=== PATIENT | female | born 1955 | race Caucasian/White ===

== ENCOUNTER 2018-11-01 18:19 | Inpatient (IN) | payer MEDICAID, OTHER ==
[~2018-11-01] VITALS: Ht 165.1 cm; Wt 68.3 kg
[2018-11-01] MEDS ORDERED: LOSA25TA41 PO (18:43)
[2018-11-01] MEDS ORDERED: OMEP10 PO (18:43)
[2018-11-01 18:57] LABS: APPEARANCE,URINE CLOUDY (CLEAR); BILIRUBIN,URINE NEGATIVE (NEGATIVE); GLUCOSE, URINE (UA) NEGATIVE (NEGATIVE); KETONES,URINE NEGATIVE (NEGATIVE); LEUKOCYTE ESTERASE ,URINE SMALL (NEGATIVE); NITRATE,URINE NEGATIVE (NEGATIVE); OCCULT BLOOD,URINE SMALL (NEGATIVE); PH,URINE 6.5 (5.0-8.0); PROTEIN,URINE SEE CONFIRM (NEGATIVE)
[2018-11-01] MEDS ORDERED: ONDANSETRON HCL 4 MG/2 ML VIAL IVP ONE (19:00)
[2018-11-01] MEDS ORDERED: MORPHINE SULFATE 4 MG/ML SYRINGE IVP ONE (19:00)
[2018-11-01] MEDS ORDERED: SODIUM CHLORIDE 0.9% 1,000 ML IV ONE ×2 (19:00→20:15)
[2018-11-01 19:03] LABS: BACTERIA,URINE Many /HPF (None Seen); SQUAMOUS EPITHELIAL CELL,UR Many /LPF (None Seen); SULFOSALICYLIC ACID,URINE 4+ (Negative); WBC,URINE 26-50 /HPF (0-5)
[2018-11-01 19:14] LABS: BASOPHILS % (AUTO) 0.2 % (0.0-2.0); EOSINOPHILS % (AUTO) 0.2 % (1.0-6.0); HEMATOCRIT 43.4 % (36-46); HEMOGLOBIN 14.6 g/dL (12.0-16.0); LYMPHOCYTES # (AUTO) 2.9 K/uL (1.0-4.8); LYMPHOCYTES % (AUTO) 14.6 % (22.0-44.0); MEAN CORPUSCULAR HEMOGLOBIN 30.2 pg (26.0-34.0); MEAN CORPUSCULAR HGB CONC 33.6 G/dL (31.0-37.0); MEAN CORPUSCULAR VOLUME 90 fL (80-100); MONOCYTES # (AUTO) 1.2 K/uL (0.1-1.0); MONOCYTES % (AUTO) 6.1 % (2.0-9.0); NEUTROPHILS # (AUTO) 15.4 K/uL (1.8-7.7); NEUTROPHILS % (AUTO) 78.9 % (40.0-70.0); PLATELET COUNT (AUTO) 286 K/uL (150-450); RED BLOOD CELL COUNT(AUTO) 4.85 MIL/uL (4.00-5.20); RED CELL DISTRIBUTION WIDTH 13.1 % (11.5-14.5)
[2018-11-01 19:23] LABS: CALCIUM, TOTAL 9.2 mg/dL (8.8-10.5); CREATININE 1.29 mg/dL (0.60-1.30); POTASSIUM 3.3 mmol/L (3.5-5.1)
[2018-11-01 19:30] LABS: ALBUMIN 3.9 g/dL (3.4-5.0); BILIRUBIN,TOTAL 0.6 mg/dL (0.1-1.0); TOTAL PROTEIN, SERUM 7.9 g/dL (6.4-8.2)
[2018-11-01] MEDS ORDERED: KETOROLAC TROMETHAMINE 30 MG/ML VIAL IVP ONE (20:15)
[2018-11-01] MEDS ORDERED: CefTRIAXone 1 GM/DEXTROSE 50 ML IV ONE (20:15)
[2018-11-01] MEDS ORDERED: GADOBUTROL 1 MMOL/ML 10 ML VIAL IVP ONE (21:54)
[2018-11-02] MEDS ORDERED: MORPHINE SULFATE 4 MG/ML SYRINGE IVP ONE (02:15)
[2018-11-02] MEDS ORDERED: SODIUM CHLORIDE 0.9% 1,000 ML IV ONE (03:00)
[2018-11-02 03:23] VITALS: BP 153/89
[2018-11-02 07:29] VITALS: BP 151/69
[2018-11-02] MEDS ORDERED: 0.9% SODIUM CHLORIDE 10 ML SYRINGE IVP PRN (07:30)
[2018-11-02] MEDS ORDERED: DEXTROSE 5%-0.45% SODIUM CHL 500 ML IV SCH (07:30)
[2018-11-02] MEDS ORDERED: MORPHINE SULFATE 2 MG/ML SYRINGE IVP PRN (07:30)
[2018-11-02] MEDS ORDERED: POTASSIUM CHL 10 MEQ/WATER 50 ML IV PRN (07:45)
[2018-11-02] MEDS: ONDANSETRON HCL 4 MG/2 ML VIAL IVP PRN (08:46)
[2018-11-02] MEDS: OxyCODONE HCL/ACETAMINOPHEN 5-325 MG TABLET PO PRN ×3 (08:46→23:39)
[2018-11-02] MEDS: POTASSIUM CHLORIDE 20 MEQ ER TABLET PO PRN (08:46)
[2018-11-02] MEDS: PIPERACILLIN/TAZO 3.375 GM/D5W 50 ML IV SCH ×3 (08:47→20:09)
[2018-11-02] MEDS: DEXTROSE 5%-0.45% SODIUM CHL 1,000 ML IV SCH ×3 (08:47→23:15)
[2018-11-02] MEDS: LOSARTAN POTASSIUM 25 MG TABLET PO SCH (08:47)
[2018-11-02] MEDS: DOCUSATE SODIUM 100 MG CAPSULE PO SCH ×2 (08:53→20:09)
[2018-11-02] MEDS ORDERED: PANTOPRAZOLE SODIUM 40 MG/VIAL IVP SCH (09:00)
[2018-11-02] MEDS ORDERED: METOCLOPRAMIDE HCL 5 MG/ML 2 ML VIAL IVP PRN (09:30)
[2018-11-02] MEDS: SIMETHICONE 80 MG CHEWABLE TABLET CHEW PRN ×3 (10:57→23:11)
[2018-11-02] MEDS: FAMOTIDINE 20 MG TABLET PO SCH ×2 (10:57→20:14)
[2018-11-02 11:48] VITALS: BP 148/80
[2018-11-02 16:00] VITALS: BP 145/85
[2018-11-02 19:41] VITALS: BP 156/81
[2018-11-03] VITALS (8 sets, daily range): BP systolic 127–164; BP diastolic 59–98
[2018-11-03] MEDS: PIPERACILLIN/TAZO 3.375 GM/D5W 50 ML IV SCH ×4 (02:37→20:58)
[2018-11-03] MEDS: SIMETHICONE 80 MG CHEWABLE TABLET CHEW PRN ×2 (05:37→15:30)
[2018-11-03 06:02] LABS: BASOPHILS % (AUTO) 0.1 % (0.0-2.0); EOSINOPHILS % (AUTO) 0 % (1.0-6.0); HEMATOCRIT 38.7 % (36-46); HEMOGLOBIN 12.7 g/dL (12.0-16.0); LYMPHOCYTES # (AUTO) 1.4 K/uL (1.0-4.8); LYMPHOCYTES % (AUTO) 7.6 % (22.0-44.0); MEAN CORPUSCULAR HEMOGLOBIN 30.2 pg (26.0-34.0); MEAN CORPUSCULAR HGB CONC 32.9 G/dL (31.0-37.0); MEAN CORPUSCULAR VOLUME 92 fL (80-100); MONOCYTES # (AUTO) 1.7 K/uL (0.1-1.0); MONOCYTES % (AUTO) 9.5 % (2.0-9.0); NEUTROPHILS # (AUTO) 15.3 K/uL (1.8-7.7); NEUTROPHILS % (AUTO) 82.8 % (40.0-70.0); PLATELET COUNT (AUTO) 169 K/uL (150-450); RED BLOOD CELL COUNT(AUTO) 4.21 MIL/uL (4.00-5.20); RED CELL DISTRIBUTION WIDTH 13.4 % (11.5-14.5)
[2018-11-03 06:33] LABS: ALBUMIN 2.7 g/dL (3.4-5.0); CALCIUM, TOTAL 8.4 mg/dL (8.8-10.5); CREATININE 1.04 mg/dL (0.60-1.30); POTASSIUM 4.1 mmol/L (3.5-5.1); TOTAL PROTEIN, SERUM 6.1 g/dL (6.4-8.2)
[2018-11-03] MEDS: LOSARTAN POTASSIUM 25 MG TABLET PO SCH (07:56)
[2018-11-03] MEDS: FAMOTIDINE 20 MG TABLET PO SCH ×2 (07:56→20:57)
[2018-11-03] MEDS: ONDANSETRON HCL 4 MG/2 ML VIAL IVP PRN ×2 (07:56→17:38)
[2018-11-03] MEDS: DOCUSATE SODIUM 100 MG CAPSULE PO SCH ×2 (07:56→21:00)
[2018-11-03] MEDS: OxyCODONE HCL/ACETAMINOPHEN 5-325 MG TABLET PO PRN ×2 (08:53→17:38)
[2018-11-03] MEDS: DEXTROSE 5%-0.45% SODIUM CHL 1,000 ML IV SCH (12:53)
[2018-11-03] MEDS: ACETAMINOPHEN 325 MG TABLET PO PRN (20:59)
[2018-11-04] MEDS: PIPERACILLIN/TAZO 3.375 GM/D5W 50 ML IV SCH ×4 (02:38→19:55)
[2018-11-04] MEDS: SIMETHICONE 80 MG CHEWABLE TABLET CHEW PRN ×3 (02:38→23:29)
[2018-11-04 04:17] VITALS: BP 164/85
[2018-11-04] MEDS: OxyCODONE HCL/ACETAMINOPHEN 5-325 MG TABLET PO PRN ×3 (04:36→17:23)
[2018-11-04 06:21] LABS: ALBUMIN 2.5 g/dL (3.4-5.0); CALCIUM, TOTAL 8.8 mg/dL (8.8-10.5); CREATININE 0.95 mg/dL (0.60-1.30); POTASSIUM 3.4 mmol/L (3.5-5.1); TOTAL PROTEIN, SERUM 6.3 g/dL (6.4-8.2)
[2018-11-04 07:20] VITALS: BP 138/78
[2018-11-04] MEDS: FAMOTIDINE 20 MG TABLET PO SCH ×2 (08:26→19:53)
[2018-11-04] MEDS: POTASSIUM CHLORIDE 20 MEQ ER TABLET PO PRN (08:26)
[2018-11-04] MEDS: DOCUSATE SODIUM 100 MG CAPSULE PO SCH ×2 (08:27→20:58)
[2018-11-04] MEDS: LOSARTAN POTASSIUM 25 MG TABLET PO SCH (08:27)
[2018-11-04] MEDS: DEXTROSE 5%-0.45% SODIUM CHL 1,000 ML IV SCH (11:02)
[2018-11-04 11:12] VITALS: BP 166/82
[2018-11-04 15:15] VITALS: BP 143/84
[2018-11-04] MEDS: ONDANSETRON HCL 4 MG/2 ML VIAL IVP PRN ×2 (16:18→23:23)
[2018-11-04 19:55] VITALS: BP 150/87
[2018-11-04] MEDS: ACETAMINOPHEN 325 MG TABLET PO PRN (20:26)
[2018-11-05 00:12] VITALS: BP 140/75
[2018-11-05] MEDS: OxyCODONE HCL/ACETAMINOPHEN 5-325 MG TABLET PO PRN ×4 (01:25→22:38)
[2018-11-05] MEDS: PIPERACILLIN/TAZO 3.375 GM/D5W 50 ML IV SCH ×4 (03:01→19:47)
[2018-11-05 04:26] LABS: APPEARANCE,URINE CLEAR (CLEAR); BILIRUBIN,URINE NEGATIVE (NEGATIVE); GLUCOSE, URINE (UA) NEGATIVE (NEGATIVE); KETONES,URINE NEGATIVE (NEGATIVE); LEUKOCYTE ESTERASE ,URINE NEGATIVE (NEGATIVE); NITRATE,URINE NEGATIVE (NEGATIVE); OCCULT BLOOD,URINE MODERATE (NEGATIVE); PH,URINE 6.5 (5.0-8.0); PROTEIN,URINE SEE CONFIRM (NEGATIVE); UROBILINOGEN,URINE 0.2 mg/dL (<=1.0)
[2018-11-05 04:31] VITALS: BP 132/70
[2018-11-05 04:38] LABS: SULFOSALICYLIC ACID,URINE 2+ (Negative)
[2018-11-05 04:39] LABS: BACTERIA,URINE Few /HPF (None Seen); SQUAMOUS EPITHELIAL CELL,UR Few /LPF (None Seen); WBC,URINE 0-2 /HPF (0-5)
[2018-11-05 06:29] LABS: BASOPHILS % (AUTO) 0.2 % (0.0-2.0); EOSINOPHILS % (AUTO) 1.1 % (1.0-6.0); HEMATOCRIT 29.4 % (36-46); HEMOGLOBIN 9.9 g/dL (12.0-16.0); LYMPHOCYTES # (AUTO) 2.2 K/uL (1.0-4.8); LYMPHOCYTES % (AUTO) 13.5 % (22.0-44.0); MEAN CORPUSCULAR HEMOGLOBIN 30.8 pg (26.0-34.0); MEAN CORPUSCULAR HGB CONC 33.5 G/dL (31.0-37.0); MEAN CORPUSCULAR VOLUME 92 fL (80-100); MONOCYTES # (AUTO) 1.4 K/uL (0.1-1.0); MONOCYTES % (AUTO) 8.6 % (2.0-9.0); NEUTROPHILS # (AUTO) 12.3 K/uL (1.8-7.7); NEUTROPHILS % (AUTO) 76.6 % (40.0-70.0); PLATELET COUNT (AUTO) 124 K/uL (150-450); RED CELL DISTRIBUTION WIDTH 12.8 % (11.5-14.5)
[2018-11-05 06:43] LABS: ALBUMIN 2.3 g/dL (3.4-5.0); BILIRUBIN,TOTAL 0.7 mg/dL (0.1-1.0); CALCIUM, TOTAL 8.2 mg/dL (8.8-10.5); CREATININE 0.95 mg/dL (0.60-1.30); POTASSIUM 3.3 mmol/L (3.5-5.1)
[2018-11-05 07:40] VITALS: BP 162/79
[2018-11-05] MEDS ORDERED: POTASSIUM CHL 10 MEQ/WATER 50 ML IV PRN (08:00)
[2018-11-05] MEDS ORDERED: POTASSIUM CHLORIDE 20 MEQ ER TABLET PO PRN (08:00)
[2018-11-05] MEDS: DOCUSATE SODIUM 100 MG CAPSULE PO SCH ×2 (08:20→21:00)
[2018-11-05] MEDS: FAMOTIDINE 20 MG TABLET PO SCH ×2 (08:20→19:47)
[2018-11-05] MEDS: LOSARTAN POTASSIUM 25 MG TABLET PO SCH (08:20)
[2018-11-05 11:38] VITALS: BP 132/66
[2018-11-05] MEDS: DEXTROSE 5%-0.45% SODIUM CHL 1,000 ML IV SCH (12:17)
[2018-11-05 16:12] VITALS: BP 140/78
[2018-11-05] MEDS: POTASSIUM CHLORIDE 20 MEQ ER TABLET PO PRN (17:53)
[2018-11-05 20:45] VITALS: BP 127/66
[2018-11-06] MEDS: DEXTROSE 5%-0.45% SODIUM CHL 1,000 ML IV SCH ×2 (00:12→19:54)
[2018-11-06 01:04] VITALS: BP 126/59
[2018-11-06] MEDS: PIPERACILLIN/TAZO 3.375 GM/D5W 50 ML IV SCH ×4 (01:44→19:56)
[2018-11-06 04:06] VITALS: BP 138/71
[2018-11-06] MEDS ORDERED: ACETAMINOPHEN 1000 MG/ISO-OSM 100 ML IV ONE (07:04)
[2018-11-06] MEDS ORDERED: SUGAMMADEX SODIUM 200 MG/2 ML VIAL IVP ONE (07:04)
[2018-11-06] MEDS ORDERED: BUPIVACAINE 0.25%/EPI 1:200,000/PF 10 ML VIAL ONE (07:29)
[2018-11-06] MEDS ORDERED: IOHEXOL 240 MG/ML 20 ML VIAL ONE ×2 (07:30)
[2018-11-06] MEDS ORDERED: SODIUM CL IRRIG SOLN BAG 3,000 ML IRRIG ONE (07:30)
[2018-11-06] MEDS ORDERED: RINGERS SOLUTION,LACTATED 1,000 ML IV ONE (07:31)
[2018-11-06] MEDS: ACETAMINOPHEN 500 MG TABLET PO SCH ×3 (08:00→19:55)
[2018-11-06] MEDS ORDERED: HYDROmorphone 2 MG/ML SYRINGE IVP PRN ×2 (08:00)
[2018-11-06] MEDS ORDERED: OxyCODONE HCL/ACETAMINOPHEN 10-325 MG TABLET PO PRN (08:00)
[2018-11-06] MEDS ORDERED: FentaNYL CITRATE-PF 100 MCG/2 ML VIAL IVP PRN (08:00)
[2018-11-06] MEDS ORDERED: MEPERIDINE-PF 25 MG/ML VIAL IVP PRN (08:00)
[2018-11-06] MEDS: DOCUSATE SODIUM 100 MG CAPSULE PO SCH ×2 (09:00→19:55)
[2018-11-06] MEDS: FAMOTIDINE 20 MG TABLET PO SCH ×2 (09:00→19:55)
[2018-11-06] MEDS: LOSARTAN POTASSIUM 25 MG TABLET PO SCH (09:00)
[2018-11-06 11:01] VITALS: BP 150/84
[2018-11-06] MEDS ORDERED: ESMOLOL HCL 10 MG/ML 10 ML VIAL IVP ONE (12:00)
[2018-11-06] MEDS ORDERED: KETOROLAC TROMETHAMINE 60 MG/2 ML VIAL IM ONE (12:00)
[2018-11-06] MEDS ORDERED: DEXAMETHASONE SOD PHOS 4 MG/ML VIAL IVP ONE (12:00)
[2018-11-06] MEDS ORDERED: LIDOCAINE/PF 2% 5 ML VIAL INJ ONE (12:00)
[2018-11-06] MEDS ORDERED: MIDAZOLAM HCL 2 MG/2 ML VIAL IVP ONE (12:00)
[2018-11-06] MEDS ORDERED: ROCURONIUM BROMIDE 10 MG/ML 5 ML VIAL IVP ONE (12:00)
[2018-11-06] MEDS ORDERED: PROPOFOL 1% 20 ML VIAL IVP ONE (12:00)
[2018-11-06] MEDS ORDERED: ONDANSETRON HCL 4 MG/2 ML VIAL IVP ONE (12:00)
[2018-11-06] MEDS ORDERED: KETAMINE HCL 50 MG/ML 10 ML VIAL IVP ONE (12:00)
[2018-11-06 15:48] VITALS: BP 152/85
[2018-11-06 16:38] VITALS: BP 121/80
[2018-11-06] MEDS ORDERED: KETOROLAC TROMETHAMINE 15 MG/ML VIAL IVP SCH (17:30)
[2018-11-06] MEDS: KETOROLAC TROMETHAMINE 15 MG/ML VIAL IVP SCH (19:19)
[2018-11-06 20:00] VITALS: BP 131/59
[2018-11-06] MEDS: SIMETHICONE 80 MG CHEWABLE TABLET CHEW PRN (20:38)
[2018-11-07] VITALS: BP_SYST 101; BP_SYST 129; BP_DIAS 60; BP_DIAS 87
[2018-11-07] MEDS: PIPERACILLIN/TAZO 3.375 GM/D5W 50 ML IV SCH ×4 (00:59→19:50)
[2018-11-07] MEDS: KETOROLAC TROMETHAMINE 15 MG/ML VIAL IVP SCH ×4 (00:59→17:44)
[2018-11-07] MEDS: ACETAMINOPHEN 500 MG TABLET PO SCH ×4 (02:00→20:00)
[2018-11-07 04:00] VITALS: BP 141/55
[2018-11-07 06:26] LABS: BASOPHILS % (AUTO) 0.2 % (0.0-2.0); EOSINOPHILS % (AUTO) 2.6 % (1.0-6.0); HEMATOCRIT 27.4 % (36-46); HEMOGLOBIN 9.3 g/dL (12.0-16.0); LYMPHOCYTES % (AUTO) 13.1 % (22.0-44.0); MEAN CORPUSCULAR HEMOGLOBIN 30.7 pg (26.0-34.0); MEAN CORPUSCULAR HGB CONC 33.8 G/dL (31.0-37.0); MEAN CORPUSCULAR VOLUME 91 fL (80-100); MONOCYTES # (AUTO) 1.3 K/uL (0.1-1.0); MONOCYTES % (AUTO) 8.9 % (2.0-9.0); NEUTROPHILS # (AUTO) 11.3 K/uL (1.8-7.7); NEUTROPHILS % (AUTO) 75.2 % (40.0-70.0); RED BLOOD CELL COUNT(AUTO) 3.01 MIL/uL (4.00-5.20); RED CELL DISTRIBUTION WIDTH 12.8 % (11.5-14.5)
[2018-11-07 06:44] LABS: ALBUMIN 2.3 g/dL (3.4-5.0); BILIRUBIN,TOTAL 0.3 mg/dL (0.1-1.0); CALCIUM, TOTAL 8.7 mg/dL (8.8-10.5); POTASSIUM 3.4 mmol/L (3.5-5.1); TOTAL PROTEIN, SERUM 6.5 g/dL (6.4-8.2)
[2018-11-07 06:58] LABS: PLATELET COUNT (AUTO) 205 K/uL (150-450)
[2018-11-07 07:48] VITALS: BP 159/78
[2018-11-07] MEDS: OMEPRAZOLE 10 MG CAPSULE PO SCH (08:22)
[2018-11-07] MEDS: FAMOTIDINE 20 MG TABLET PO SCH ×2 (08:22→19:53)
[2018-11-07] MEDS: DOCUSATE SODIUM 100 MG CAPSULE PO SCH ×3 (08:22→21:00)
[2018-11-07] MEDS: LOSARTAN POTASSIUM 25 MG TABLET PO SCH (08:22)
[2018-11-07] MEDS: POTASSIUM CHLORIDE 20 MEQ ER TABLET PO PRN (10:49)
[2018-11-07 12:38] VITALS: BP 160/75
[2018-11-07 15:42] VITALS: BP 140/70
[2018-11-07 20:21] VITALS: BP 143/75
[2018-11-08] MEDS: KETOROLAC TROMETHAMINE 15 MG/ML VIAL IVP SCH ×3 (00:07→12:00)
[2018-11-08 00:10] VITALS: BP 162/75
[2018-11-08] MEDS: PIPERACILLIN/TAZO 3.375 GM/D5W 50 ML IV SCH ×2 (02:14→08:48)
[2018-11-08] MEDS: ACETAMINOPHEN 500 MG TABLET PO SCH ×2 (02:17→08:03)
[2018-11-08 05:05] VITALS: BP 127/69
[2018-11-08 07:44] VITALS: BP 139/64
[2018-11-08] MEDS: OMEPRAZOLE 10 MG CAPSULE PO SCH (08:02)
[2018-11-08] MEDS: LOSARTAN POTASSIUM 25 MG TABLET PO SCH (08:03)
[2018-11-08] MEDS: FAMOTIDINE 20 MG TABLET PO SCH (08:03)
[2018-11-08] MEDS: DOCUSATE SODIUM 100 MG CAPSULE PO SCH (08:03)
[2018-11-08] MEDS ORDERED: HYDR-4061 PO (11:58)
[2018-11-08] MEDS ORDERED: DSS100 PO (11:59)
[2018-11-08 12:02] VITALS: BP 134/68
== END 2018-11-08 13:35 | disposition home or self-care (01) | DRG 263 ==
LOC: EMS 18:22 → 5N 11-02 02:04 → 4E 11-03 18:31 → 5N 11-04 17:48
PROVIDERS: ADMIT Internal Medicine; ATTEND Internal Medicine
PROC: BF131ZZ Fluoroscopy of Gallbladder and Bile Ducts using Low Osmolar Contrast (ICD-10-PCS; 2018-11-06)
PROC: 0FT44ZZ Resection of Gallbladder, Percutaneous Endoscopic Approach (ICD-10-PCS; principal; 2018-11-06 07:30)
DX: K80.00 Calculus of gallbladder with acute cholecystitis without obstruction (principal); K85.10 Biliary acute pancreatitis without necrosis or infection; R18.8 Other ascites; R65.10 Systemic inflammatory response syndrome (SIRS) of non-infectious origin without acute organ dysfunction; E44.1 Mild protein-calorie malnutrition; I10 Essential (primary) hypertension; K21.9 Gastro-esophageal reflux disease without esophagitis; N39.0 Urinary tract infection, site not specified; E87.6 Hypokalemia; D64.9 Anemia, unspecified; Z88.8 Allergy status to other drugs, medicaments and biological substances; Z79.899 Other long term (current) drug therapy
CPT/HCPCS: 74183; 76705; 84132; 87040; 87086; 88304; A9585; C9113; G0378; J0131; J0690; J0696; J1100; J1885; J2250; J2270; J2405; J2543; J2704; J3490; J7030; J7120; Q9966